=== PATIENT | male | born 1985 | race African-American/Black ===

== ENCOUNTER 2024-07-31 08:46 | Outpatient (AMB) | payer OTHER, SELFPAY ==
--- NOTE | 2024-07-31 09:00 | HO.SPINEOV ---
Intake Visit Reasons: LBP Intake Note: Mr. Aleman is here c/o low back pain. 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 He is a 38-year-old male who presents to the office today for evaluation of right-sided leg pain and right-sided low back pain which started about 2 years ago and is being progressively worse. It radiates down into his lateral thigh into his lateral calf. It is aggravated with standing and walking. Throughout the process of the last few years he has been through physical therapy initially, followed by 1 year of chiropractic, followed by cortisone injections done at your office. Most of these things would give some minor temporary relief but in general the pain always came back. He has been taking Tylenol religiously. He can not take Motrin secondary to GERD symptoms. He is here today with an MRI showing a herniated disc at L1-2 on the right and L4-5 on the right. PMH: Hypertension, high cholesterol, GERD, NAFLD. No history of cardiac, pulmonary, renal, coagulopathy, cancer, blood clots, lumbar surgery, abdominal surgery. Social hx: He does not smoke, drink use any recreational drugs Medications: Atorvastatin, losartan, amlodipine and pantoprazole Allergies: None Physical exam: Awake alert oriented no acute distress, gait is normal, tandem gait walking is normal, strength and reflexes are all normal. Imaging review: Lumbar MRI done at [facility] in June of 2024 shows right L1-2 disc bulge displacing the right L2 nerve root, right L4-5 disc herniation causing compression of the right L5 nerve. Impression: 38-year-old male with a right L5 radiculopathy secondary to right L4-5 disc herniation. The symptoms have been going on for 2 years. He has failed conservative treatment. Dr. Diane and I reviewed the imaging and believe he would be a good candidate for right L4-5 microdiskectomy. The patient would like to think about it and get back to us. We quoted success rate at 90%. Pt was given risk and benefits of surgery including but not limited to infection, hematoma , nerve injury,durotomy, weakness,bowel/bladder injury, persistent pain, recurrent disc hernia as well as the option to continue with conservative treatment and patient wishes to proceed with surgery. Pt is aware they should stop their motrin, aspirin 7 days prior to surgery. All questions were answered to the best of our ability. If there is anything about this patients medical history that we have overlooked or concerns you have about us proceeding with surgery we would appreciate any input you can offer. Thank you for allowing us to care for your patient. The total time spent with this visit with this patient was 45 minutes reviewing history, physical exam, lumbar imaging review, and implementation of treatment plan or further diagnostic testing Lobo Diane MD,PhD [facility] Coding Level of Care Code New Pt Level 4 (59891) Diagnoses Lumbar disc herniation M51.26
--- OUTSIDE RECORDS SUMMARY | 2024-07-31 09:10 | XMS_ITS | Clinical Summary ---
Author Organization 175 [facility] Address [address] [place] [address] Phone Care Team Providers Care Group Home Paraprofessional Name Role Phone Devyn Norris MD Primary Care Provider [phone] Allergies No known active allergies Medications amitriptyline (ELAVIL) 25 mg tablet Take 1 tablet (25 mg total) by mouth at bedtime. 4 Active cholecalciferol (VITAMIN D-3) 50 mcg (2,000 unit) capsule Take 1 capsule (2,000 Units total) by mouth 1 (one) time each day. 4 Active magnesium 250 mg tablet Take 1 Tablet by mouth at bedtime. 4 Active atorvastatin (LIPITOR) 20 mg tablet TAKE 1 TABLET BY MOUTH EVERY DAY 90 tablet 3 4 Active famotidine (PEPCID) 20 mg tabletIndicatio ns:Gastro-esoph ageal reflux disease without esophagitis Take 1 tablet (20 mg total) by mouth 2 (two) times a day. 180 tablet 1 4 Active amLODIPine (NORVASC) 5 mg tablet TAKE 1 TABLET BY MOUTH EVERY DAY 90 tablet 1 4 Active losartan (COZAAR) 100 mg tablet TAKE 1 TABLET BY MOUTH EVERY DAY 90 tablet 1 5 Active pantoprazole (PROTONIX) 40 mg EC tabletIndicatio ns:Gastroesopha geal reflux disease, unspecified whether esophagitis present TAKE 1 TABLET BY MOUTH TWICE A DAY 180 tablet 5 Active pantoprazole (PROTONIX) 40 mg EC tablet Take 1 tablet (40 mg total) by mouth 1 (one) time each day. 4 025 Discontinued Active Problems Problem Noted Date Diagnosed Date Fatty liver 03/10/2024 Overview (03/10/2024): US 01/16/18 Vitamin D deficiency 05/31/2023 Low back pain 12/12/2022 Obesity (BMI 30-39.9) 09/07/2022 HTN (hypertension) 11/08/2021 Hyperlipidemia 07/29/2017 Elevated liver enzymes 07/26/2017 GERD (gastroesophageal reflux disease) Encounters Date Type Department Care Team Description 07/08/2024 8:05 AM EDT - 07/08/2024 11:59 PM EDT Hospital Encounter [facility] MRI [address] [place] [phone] Radiculopathy, lumbar region Discharge Disposition: Home or Self Care 05/08/2024 10:30 AM EST Office Visit Internal Medicine - Colon 175 [facility] [address] [place] [phone] [place], [place] Routine physical examination (Primary Dx); Primary hypertension; Pure hypercholesterolemi a; Obesity (BMI 30-39.9); Gastroesophageal reflux disease, unspecified whether esophagitis present; Vitamin D deficiency; Chronic right-sided low back pain with right-sided sciatica from Last 3 Months Immunizations Name Administration Dates Next Due Hepatitis B Pediatric (Enger ix B; Recombivax HB) to less than 20 yo 07/31/2000,05/10/2000,04/11/2000 MMR, measles mumps and rubel la Live (Priorix; M-M-R II) 12mo and older 12/06/1997,04/11/1989 Meningococcal Polysaccharide 04/15/2006 Tdap Tetanus diptheria acell ular pertussis (Boostrix; Adacel) 7yo and older 04/15/2006 Medical History Medical History Date Comments Hyperlipidemia 07/29/2017 DX:Hyperlipidemi a Fatty liver DX:Fatty liver; COMMENT: US 01/16/18 HTN (hypertension) DX:HTN (hyper tension) Obesity (BMI 30-39.9) DX:Obesity (BMI 30-39.9) Low back pain DX:Low back pain Vitamin D deficiency DX:Vitamin D deficiency GERD (gastroesophageal reflux disease) Family History Relation Name Status Comments Father Alive Mother Alive Social History Tobacco Use Types Packs/Day Years Used Date Smoking Tobacco: Never Smokeless Tobacco: Never Tobacco Cessation:Counseling Given: Not Answered Alcohol Use Standard Drinks/Week Comments Not Currently 0 (1 standard drink = 0.6 oz pur e alcohol) Housing Instability Answer Date Recorde d Are you worried that in the next 2 months you may not have stable housing? No 05/02/2024 Food Access & Nutrition Answer Date Rec orded Do you have access to a vari ety of food including fruits and vegetables? Yes 05/02/2024 Health Literacy Answer Date Recorded How often do you need to hav e someone help you when you read instructions, pamphlets, or other written material from your doctor or pharmacy? Never 05/02/2024 Caregiver: How often do you need to have someone help you when you read instructions, pamphlets, or other written material from your doctor or pharmacy? Not on file 05/02/2024 Financial Risk Answer Date Recorded How hard is it for you to pa y for the very basics like food, housing, medical care, and air conditioning / heating? Unable to respond 05/02/2024 Transportation Answer Date Recorded Has the lack of transportati on kept you from meetings, work, or from getting things needed for daily living? No Has the lack of transportati on kept you from medical appointments or from getting medications? No 05/02/2024 Social Isolation Answer Date Recorded How often do you feel lonely or isolated from th ose around you? Never 05/02/2024 Food Risk Answer Date Recorded Within the past 12 months we worried whether our food would run out before we got money to buy more. Never true 05/02/2024 Within the past 12 months th e food we bought just didn't last and we didn't have money to get more. Never true 05/02/2024 Dependent Care Answer Date Recorded Do you need help finding or paying for care for your loved ones. For example, child specialist or elderly care for an older adult? Unable to respond 05/02/2024 Education Answer Date Recorded Do you think completing more education or training, like finishing a GED, going to college, or learning a trade, would be helpful for you? N/A 05/02/2024 Employment and Income Answer Date Recor ded During the last four weeks, have you been actively looking for work? Unable to respond 05/02/2024 Living Situation Answer Date Recorded What is your living situation? 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[employer] Not on file Not on file Not on file Obstetrics History Last Filed Vital Signs Vital Sign Reading Time Taken Comments Blood Pressure 138/90 05/08/2024 10:10 AM EST Pulse 98 05/08/2024 10:10 AM EST Temperature 36.7 ??C (98 ??F) 05/08/2024 10:10 AM EST Respiratory Rate - - Oxygen Saturation 97% 05/08/2024 10:10 AM EST Inhaled Oxygen Concentration - - Weight 107 kg (235 lb) 05/08/2024 10:10 AM EST Height 175.3 cm (5' 9 ) 05/08/2024 10:10 AM EST Body Mass Index 34.7 05/08/2024 10:10 AM EST Plan of Treatment Upcoming Encounters Date Type Department Care Team ([facility] st Contact Info) Description 11/05/2024 8:30 AM EDT Office Visit Internal Medicine - Colon [address] [phone] Devyn Norris MD 175 [facility] [address] [place] [address] Health Maintenance Due Date Last Done Comments Pneumococcal Vaccine: Pediatrics (0 to 5 Years) and At-Risk Patients (6 to 64 Years) (1 of 2 - PCV) 12/03/2006 DTaP,Tdap,and Td Vaccines (7 - Td or Tdap) 04/15/2016 04/15/2006, 11/16/1992, 07/19/1989, Additional history exists COVID-19 Vaccine (2 - Tito risk series) 09/22/2020 08/25/2020 HIV Screening 03/24/2022 Hepatitis C Screening 03/24/2022 Influenza Vaccine (Season Ended) 2024 Depression Screening 05/02/2025 05/02/2024, 01/20/20 Social Influencers of Health Screening 05/02/2025 05/02/2024 Hypertension/CHF/CAD Annual BMP Blood Test 05/08/2025 05/08/2024, 05/30/2023 Cholesterol Screening (Lipid Panel) 05/08/2029 05/08/2024, 05/30/2023 HIB Vaccines Completed 07/19/1989 IPV Vaccines Completed 11/16/1992, 04/0 09/1989, 08/22/1988, Additional history exists MMR Vaccines Completed 12/06/1997, 04/11/1989 Hepatitis B Vaccines Completed 07/31/2000, 05/10/2000, 04/11/2000 Meningococcal ACWY Vaccine Aged Out 12/11/2006, No longer eligible based on patient's age to complete this topic HPV Vaccines Aged Out No longer eligi ble based on patient's age to complete this topic Hepatitis A Vaccines Aged Out No long er eligible based on patient's age to complete this topic Meningococcal B Vaccine Aged Out No l onger eligible based on patient's age to complete this topic RSV Immunization Patients Under 20 months Aged Out No longer eligible based on patient's age to complete this topic Varicella Vaccines Aged Out No longer eligible based on patient's age to complete this topic Procedures Procedure Name Priority Date/Time Associated Diagnosis Comments MR LUMBAR SPINE WO CONTRAST Routine 07/08/2024 9:47 AM EDT Radiculopathy, lumbar region CBC WITH AUTO DIFFERENTIAL Routine 05/08/2024 10:40 AM EST Routine physical examination VITAMIN B12 Routine 05/08/2024 10:40 AM EST Routine physical examination VITAMIN D 25 HYDROXY Routine 05/08/2024 10:40 AM EST Vitamin D deficiency THYROID STIMULATING HORMONE Routine 05/08/2024 10:40 AM EST Routine physical examination MICROALBUMIN CREATININE URINE RATIO Routine 05/08/2024 10:40 AM EST Primary hypertension MAGNESIUM Routine 05/08/2024 10:40 AM EST Routine physical examination IRON Routine 05/08/2024 10:40 AM EST Routine physical examination FERRITIN Routine 05/08/2024 10:40 AM EST Routine physical examination LIPID PANEL WITH REFLEX TO DIRECT LDL Routine 05/08/2024 10:40 AM EST Routine physical examination HEMOGLOBIN A1C Routine 05/08/2024 10:40 AM EST Routine physical examination COMPREHENSIVE METABOLIC PANEL Routine 05/08/2024 10:40 AM EST Primary hypertension CBC AND DIFFERENTIAL Routine 05/08/2024 10:40 AM EST Routine physical examination HM DEPRESSION SCREENING Routine 01/20/2024 from Last 3 Months or Most Recently Relevant to Health Maintenance Results * MR Lumbar Spine wo Contrast (07/08/2024 9:47 AM EDT) Anatomical Region Laterality Modality L-spine, Spine Magnetic Resonan ce 07/11/2024 8:36 PM EDT Impressions 07/13/2024 10:06 AM EDT 1. ??A right-sided disc herniation at L4-5 results in impingement of the right L5 nerve root in the lateral recess. 2. ??A right central protrusion and annular fissure at L1-2 causes posterior displacement of the right L2 nerve root in the lateral recess. -------- FINAL REPORT -------- Dictated By: Lew York Dictated Date: 07/11/2024 20:36 ET Assigned Physician: Lew York Reviewed and Electronically Signed By: Lew York Signed Date: 07/13/2024 10:06 ET Workstation ID: [id number] Transcribed By: Self Edit Transcribed Date: 07/13/2024 09:45 ET Narrative 07/13/2024 10:06 AM EDT PROCEDURE: MRI of the lumbar spine without contrast. TECHNIQUE: Multiplanar multisequence MRI of the lumbar spine without intravenous contrast administration. HISTORY: radiculopathy COMPARISON: 04/02/2022. FINDINGS: The paraspinous soft tissues are normal. Alignment is normal. ??No concerning marrow infiltrative lesion or compression deformity. Normal position of the conus at T12-L1. Lumbar disc levels: L1-2: Mild disc space height loss and moderate endplate irregularity. ??There is a moderate right central focal protrusion and annular fissure with mild posterior displacement of the right L2 nerve root in the lateral recess. ??No impingement. ??No spinal or foraminal stenosis. L2-3: No significant disc or facet abnormality. ??No spinal or foraminal stenosis. L3-4: No significant disc or facet abnormality. ??No spinal or foraminal stenosis. L4-5: Broad-based right central and foraminal disc herniation, extruded slightly superiorly. ??There is associated impingement of the right L5 nerve root in the lateral recess. ??No spinal or foraminal stenosis. L5-S1: No significant disc or facet abnormality. ??No spinal or foraminal stenosis. Procedure Note Lew York MD - 07/13/2024 PROCEDURE: MRI of the lumbar spine without contrast. TECHNIQUE: Multiplanar multisequence MRI of the lumbar spine withoutintravenous contrast administration. HISTORY: radiculopathy COMPARISON: 04/02/2022. FINDINGS: The paraspinous soft tissues are normal. Alignment is normal. No concerning marrow infiltrative lesion orcompression deformity. Normal position of the conus at T12-L1. Lumbar disc levels: L1-2: Mild disc space height loss and moderate endplate irregularity.There is a moderate right central focal protrusion and annular fissurewith mild posterior displacement of the right L2 nerve root in the lateralrecess. No impingement. No spinal or foraminal stenosis. L2-3: No significant disc or facet abnormality. No spinal or foraminalstenosis. L3-4: No significant disc or facet abnormality. No spinal or foraminalstenosis. L4-5: Broad-based right central and foraminal disc herniation, extrudedslightly superiorly. There is associated impingement of the right P2xnslr root in the lateral recess. No spinal or foraminal stenosis. L5-S1: No significant disc or facet abnormality. No spinal or foraminalstenosis. IMPRESSION: 1. A right-sided disc herniation at L4-5 results in impingement of theright L5 nerve root in the lateral recess. 2. A right central protrusion and annular fissure at L1-2 causesposterior displacement of the right L2 nerve root in the lateral recess. -------- FINAL REPORT -------- Dictated By: Lew York Dictated Date: 07/11/2024 20:36 ET Assigned Physician: Lwe York Reviewed and Electronically Signed By: Lew York Signed Date: 07/13/2024 10:06 ET Workstation ID: [id number] Transcribed By: Self Edit Transcribed Date: 07/13/2024 09:45 ET Will Sierra DO IMG MRI PROCEDURES Final Result * (ABNORMAL) Lipid panel with reflex to direct LDL (05/08/2024 10:40 AM EST) Cholesterol 198 0 - 200 mg/dL LAB CHEMISTRY METHOD 05/08/2024 4:58 PM [facility] Triglycerides 109 0 - 150 mg/dL LAB CHEMISTRY METHOD 05/08/2024 4:58 PM [facility] HDL 55 >=40 mg/dL LAB CHEMISTRY METHOD 05/08/2024 4:58 PM [facility] LDL Calculated 121(H) 0 - 100 mg/dL LAB CHEMISTRY METHOD 05/08/2024 4:58 PM [facility] VLDL Cholesterol Gumaro 21.8 mg/dL LAB CHEMISTRY METHOD 05/08/2024 4:58 PM [facility] Non HDL Chol. (LDL+VLDL) 143 <145 mg/dL LAB CHEMISTRY METHOD 05/08/2024 4:58 PM [facility] Chol/HDL Ratio 3.6 0.0 - 4.4 LAB CHEMISTRY METHOD 05/08/2024 4:58 PM [facility] Blood Venous blood specimen / Unknown Venipuncture / Unknown 05/08/2024 10:40 AM EST 05/08/2024 10:40 AM EST [facility] LAB BLOOD ORDERABLES Fin al Result [facility] [address] [place] [address], [place] [phone] * (ABNORMAL) CBC auto differential (05/08/2024 10:40 AM EST) WBC 5.6 4.8 - 10.8 K/mcL LAB HEMETOLOGY METHOD 05/08/2024 2:22 PM [facility] RBC 5.90(H) 4.50 - 5.50 M/mcL LAB HEMETOLOGY METHOD 05/08/2024 2:22 PM [facility] Hemoglobin 15.9 13.5 - 17.5 g/dL LAB HEMETOLOGY METHOD 05/08/2024 2:22 PM [facility] Hematocrit 47.8 42.0 - 54.0 % LAB HEMETOLOGY METHOD 05/08/2024 2:22 PM [facility] MCV 80.6 79.0 - 98.0 FL LAB HEMETOLOGY METHOD 05/08/2024 2:22 PM [facility] MCH 26.8(L) 27.0 - 32.0 pcg LAB HEMETOLOGY METHOD 05/08/2024 2:22 PM [facility] MCHC 33.3 32.0 - 37.0 g/dL LAB HEMETOLOGY METHOD 05/08/2024 2:22 PM [facility] RDW 12.2 11.0 - 15.0 % LAB HEMETOLOGY METHOD 05/08/2024 2:22 PM [facility] Platelets 289 130 - 400 K/mcL LAB HEMETOLOGY METHOD 05/08/2024 2:22 PM [facility] MPV 10.3 7.0 - 11.0 FL LAB HEMETOLOGY METHOD 05/08/2024 2:22 PM [facility] NRBC 0.0 <1.0 % LAB HEMETOLOGY METHOD 05/08/2024 2:22 PM [facility] NRBC Absolute 0.00 <0.10 K/mcL LAB HEMETOLOGY METHOD 05/08/2024 2:22 PM [facility] Neutrophils Relative 59.1 % LAB HEMETOLOGY METHOD 05/08/2024 2:22 PM [facility] Lymphocytes Relative 33.0 % LAB HEMETOLOGY METHOD 05/08/2024 2:22 PM [facility] Monocytes Relative 6.7 % LAB HEMETOLOGY METHOD 05/08/2024 2:22 PM [facility] Eosinophils Relative 0.4 % LAB HEMETOLOGY METHOD 05/08/2024 2:22 PM [facility] Basophils Relative 0.4 % LAB HEMETOLOGY METHOD 05/08/2024 2:22 PM [facility] Immature Granulocytes Relative 0.4 % LAB HEMETOLOGY METHOD 05/08/2024 2:22 PM [facility] Neutrophils Absolute 3.34 1.50 - 7.00 K/mcL LAB HEMETOLOGY METHOD 05/08/2024 2:22 PM [facility] Lymphocytes Absolute 1.86 1.00 - 5.00 K/mcL LAB HEMETOLOGY METHOD 05/08/2024 2:22 PM [facility] Monocytes Absolute 0.38 0.20 - 1.00 K/mcL LAB HEMETOLOGY METHOD 05/08/2024 2:22 PM [facility] Eosinophils Absolute 0.02 0.00 - 0.50 K/mcL LAB HEMETOLOGY METHOD 05/08/2024 2:22 PM EST [facility] Basophils Absolute 0.02 0.00 - 0.20 K/[facility] LAB HEMETOLOGY METHOD 05/08/2024 2:22 PM EST [facility] Immature Granulocytes Absolute 0.02 0.00 - 0.03 K/[facility] LAB HEMETOLOGY METHOD 05/08/2024 2:22 PM EST [facility] Blood Venous blood specimen / Unknown Venipuncture / Unknown 05/08/2024 10:40 AM EST 05/08/2024 10:40 AM EST us [facility] LAB BLOOD ORDERABLES Fin al Result Performing Organization Address [facility]/ZIP Co de Phone Number [facility] [address] [place] [address], * Microalbumin creatinine urine ratio (05/08/2024 10:40 AM EST) Creatinine, Urine 145.0 mg/dL LAB CHEMISTRY METHOD 05/08/2024 4:51 PM [facility] Microalb, Ur 8.2 0.0 - 29.0 mg/L LAB CHEMISTRY METHOD 05/08/2024 4:51 PM [facility] Microalb/Creat Ratio 6 <30 mg/g creat LAB CHEMISTRY METHOD 05/08/2024 4:51 PM [facility] Urine Urine specimen obtained by clean catch procedure / Unknown Non-blood Collection / Unknown 05/08/2024 10:40 AM EST 05/08/2024 10:40 AM EST [facility] LAB URINE ORDERABLES Fin al Result Performing Organization Address City/[facility]/ZIP Co de Phone Number [facility] [address] [place] [address], * (ABNORMAL) Vitamin D 25 hydroxy (05/08/2024 10:40 AM EST) Pathologist [facility] Vit D, 25-Hydroxy 23.6(L) 30.0 - 80.0 ng/mL LAB CHEMISTRY METHOD 05/08/2024 4:27 PM EST [facility] Blood Venous blood specimen / Unknown Venipuncture / Unknown 05/08/2024 10:40 AM EST 05/08/2024 10:40 AM EST us [facility] LAB BLOOD ORDERABLES Fin al Result [facility] [address] [place] [address], * Thyroid stimulating hormone (05/08/2024 10:40 AM EST) [facility] TSH 2.55 0.40 - 4.00 mcIU/mL LAB CHEMISTRY METHOD 05/08/2024 4:27 PM EST [facility] Blood Venous blood specimen / Unknown Venipuncture / Unknown 05/08/2024 10:40 AM EST 05/08/2024 10:40 AM EST us [facility] LAB BLOOD ORDERABLES Fin al Result [facility] [address] [place] [address], [place] [phone] * Magnesium (05/08/2024 10:40 AM EST) Pathologist [facility] Magnesium 2.2 1.9 - 2.6 mg/dL LAB CHEMISTRY METHOD 05/08/2024 4:34 PM EST [facility] Blood Venous blood specimen / Unknown Venipuncture / Unknown 05/08/2024 10:40 AM EST 05/08/2024 10:40 AM EST us [facility] LAB BLOOD ORDERABLES Fin al Result Performing Organization Address City/[facility]/ZIP Co de Phone Number [facility] [address] [place] [address], [place] [phone] * Iron (05/08/2024 10:40 AM EST) [facility] Iron 123 50 - 160 mcg/dL LAB CHEMISTRY METHOD 05/08/2024 4:58 PM EST [facility] Blood Venous blood specimen / Unknown Venipuncture / Unknown 05/08/2024 10:40 AM EST 05/08/2024 10:40 AM EST us [facility] LAB BLOOD ORDERABLES Fin al Result Performing Organization Address [facility]/ZIP Co de Phone Number [facility] [address] [place] [address], [place] [phone] * Hemoglobin A1c (05/08/2024 10:40 AM EST) [facility] Hemoglobin A1C 4.8 <6.5 % LAB CHEMISTRY METHOD 05/08/2024 9:46 PM EST [facility] Mean Bld Glu Estim. 91 mg/dL LAB CHEMISTRY METHOD 05/08/2024 9:46 PM EST [facility] Blood Venous blood specimen / Unknown Venipuncture / Unknown 05/08/2024 10:40 AM EST 05/08/2024 10:40 AM EST us [facility] LAB BLOOD ORDERABLES Fin al Result Performing Organization Address City/[facility]/ZIP Co de Phone Number [facility] [address] [place] [address], [place] [phone] * Ferritin (05/08/2024 10:40 AM EST) [facility] Ferritin 284 26 - 388 ng/mL LAB CHEMISTRY METHOD 05/08/2024 4:58 PM EST [facility] Blood Venous blood specimen / Unknown Venipuncture / Unknown 05/08/2024 10:40 AM EST 05/08/2024 10:40 AM EST [facility] LAB BLOOD ORDERABLES Fin al Result [facility] [address] [place] [address], [place] [phone] * Vitamin B12 (05/08/2024 10:40 AM EST) [facility] Vitamin B-12 586 250 - 900 pcg/mL LAB CHEMISTRY METHOD 05/08/2024 4:58 PM EST [facility] Blood Venous blood specimen / Unknown Venipuncture / Unknown 05/08/2024 10:40 AM EST 05/08/2024 10:40 AM EST [facility] LAB BLOOD ORDERABLES Fin al Result Performing Organization Address [facility]/ZIP Co de Phone Number [facility] [address] [place] [address], [place] [phone] * (ABNORMAL) Comprehensive metabolic panel (05/08/2024 10:40 AM EST) [facility] Sodium 132(L) 133 - 145 mmol/L LAB CHEMISTRY METHOD 05/08/2024 4:58 PM EST [facility] Potassium 4.3 3.5 - 5.5 mmol/L LAB CHEMISTRY METHOD 05/08/2024 4:58 PM EST [facility] Chloride 102 96 - 110 mmol/L LAB CHEMISTRY METHOD 05/08/2024 4:58 PM EST [facility] CO2 28 21 - 32 mmol/L LAB CHEMISTRY METHOD 05/08/2024 4:58 PM [facility] Anion Gap 2(L) 3 - 11 LAB CHEMISTRY METHOD 05/08/2024 4:58 PM [facility] Glucose 94 70 - 100 mg/dL LAB CHEMISTRY METHOD 05/08/2024 4:58 PM [facility] BUN 13 5 - 25 mg/dL LAB CHEMISTRY METHOD 05/08/2024 4:58 PM [facility] Creatinine 0.85 0.70 - 1.30 mg/dL LAB CHEMISTRY METHOD 05/08/2024 4:58 PM [facility] eGFR 115 >=60 mL/min/1. 73m2 LAB CHEMISTRY METHOD 05/08/2024 4:58 PM [facility] Comment:Calculation based on the??Chronic Kidney Disease Epidemiology Collaboration (CKD-EPI) equation refit??without adjustment for race. BUN/Creatinine Ratio 15.3 LAB CHEMISTRY METHOD 05/08/2024 4:58 PM [facility] Calcium 9.1 8.5 - 10.5 mg/dL LAB CHEMISTRY METHOD 05/08/2024 4:58 PM [facility] AST (SGOT) 31 10 - 42 unit/L LAB CHEMISTRY METHOD 05/08/2024 4:58 PM [facility] ALT (SGPT) 68(H) 10 - 60 unit/L LAB CHEMISTRY METHOD 05/08/2024 4:58 PM [facility] Alkaline Phosphatase 102 42 - 121 unit/L LAB CHEMISTRY METHOD 05/08/2024 4:58 PM [facility] Total Protein 8.2(H) 6.0 - 8.0 g/dL LAB CHEMISTRY METHOD 05/08/2024 4:58 PM [facility] Albumin 4.1 3.2 - 5.0 g/dL LAB CHEMISTRY METHOD 05/08/2024 4:58 PM [facility] Total Bilirubin 0.8 0.0 - 1.4 mg/dL LAB CHEMISTRY METHOD 05/08/2024 4:58 PM EST [facility] Blood Venous blood specimen / Unknown Venipuncture / Unknown 05/08/2024 10:40 AM EST 05/08/2024 10:40 AM EST [facility] LAB BLOOD ORDERABLES Fin al Result [facility] [address] [place] [address], [place] [phone] * Depression Screening (01/20/2024) Depression Screening abstracted Historical Provider HEALTH MAINTENANCE Final Result from Last 3 Months or Most Recently Relevant to Health Maintenance Insurance [facility] [address] [place] [address] Care Teams Group Home Paraprofessional Relationship Specialty Start Date End Date Devyn Norris MD [address] [facility] [address] [place] [address] PCP - General Internal Medicine 03/17/18
== END 2024-07-31 09:19 | disposition home or self-care (01) ==
LOC: HO.HNS 08:46
PROVIDERS: PCP Internal Medicine; Referring Provider Physical Medicine & Rehabilitation; Visit Provider Physician Assistant
DX: M51.26 Other intervertebral disc displacement, lumbar region (principal)
CPT/HCPCS: 99204

== ENCOUNTER 2024-10-15 07:50 | Day surgery (SDC) | payer OTHER, SELFPAY ==
[2024-09-24 09:53] VITALS: BP 134/76; PULSE 101; RESP 16; O2SAT 98; BMI 34.7
--- NOTE | 2024-09-24 10:14 | HO.ANESPROP2 ---
Documented by User: Lashon Reyes NP 10/13/24 12:05 HPI - Anesthesia Eval Consult details Narrative: 38yo M for Right L4-5 MicroLumbar discectomy, 10/15/24 No recent illness No CP/SOB with treadmill/stationary bike 2-3 x weekly GERD: ppi with prn H2 mostly controls Slight low Na 04/2024. Repeat at [facility] Active Problems Active Problems: All Active Problems Lumbar disc herniation (Acute) Past Medical History Medical History (Updated 09/24/24 @ 10:09 by Fartun Ravi, RN) Renal stone (~2022) Anxiety Vitamin D deficiency NAFLD (nonalcoholic fatty liver disease) Elevated LFTs Right leg pain Low back pain Insomnia Hiatal hernia GERD (gastroesophageal reflux disease) HLD (hyperlipidemia) HTN (hypertension) Family History Family history of problems with anesthesia: No Surgical History Surgical History History of esophagogastroduodenoscopy (EGD) History of Problems with Anesthesia: No Social History Social History (Updated 09/24/24 @ 10:21 by Fartun Ravi RN) Household Members: Spouse Housing: House Are you a primary clinical care leader to a significant other at home: No Do you presently have visiting nurse or other home services: No Patient Tobacco Use Status: Never used Tobacco Use of substances other than those prescribed or required for medical reasons: No Have you been hit, kicked, punched, or otherwise hurt by someone within the past year? If so, by whom?: No Are you DNR?: No Advance Directives: No Advance Directives Information Provided: Yes Advance Directives on File: No Poor oral hygiene: No (some missing teeth, cracked crown) Meds Allergies Allergy/AdvReac Type Severity Reaction Status Date / Time No Known Allergies Allergy Verified 10/15/24 09:27 Home Medications ?Medication ?Instructions ?Recorded ?Confirmed ?Last Taken ?Type amitriptyline 25 mg tablet 25 mg PO BEDTIME 09/23/24 10/15/24 Unknown History amlodipine 5 mg tablet 5 mg PO DAILY 09/23/24 10/15/24 10/15/24 History atorvastatin 20 mg tablet 20 mg PO DAILY 09/23/24 10/15/24 10/15/24 History cholecalciferol (vitamin D3) 50 50 mcg PO DAILY 09/23/24 10/15/24 07/14/24 History mcg (2,000 unit) capsule (Vitamin D3) famotidine 20 mg tablet 20 mg PO BID PRN Acid Reflux 09/23/24 10/15/24 Unknown History losartan 100 mg tablet 100 mg PO DAILY 09/23/24 10/15/24 10/14/24 History pantoprazole 40 mg tablet,delayed 40 mg PO BID 09/23/24 10/15/24 10/15/24 History release acetaminophen 500 mg tablet 1,000 mg PO Q6H PRN Pain 09/24/24 10/15/24 Unknown History Exam Height,Weight and Vital Signs: Height 5 ft 9 in Weight 106.594 kg Last Vital Signs Pulse 101 H 09/24/24 09:53 Resp 16 09/24/24 09:53 BP 134/76 09/24/24 09:53 Pulse Ox 98 09/24/24 09:53 O2 Del Method Room Air 09/24/24 09:53 Pertinent Lab Results Pertinent Lab Results: Lab Results 09/24/24 Range/Units 10:45 Sodium 137 (135-145) mmol/L Potassium 4.2 (3.3-5.1) mmol/L Chloride 105 (96-108) mmol/L Carbon Dioxide 27 (22-29) mmol/L Anion Gap 9 L (12-20) BUN 17 H (9-16) mg/dL Creatinine 0.73 (0.5-1.4) mg/dL Estim Creat Clear Calc 168.3 Estimated GFR > 60 Random Glucose 90 (60-115) mg/dL Calcium 9.4 (8.4-10.2) mg/dL Narrative Narrative: ECHO 2023 LV wall motion appears nml, EF 60% No significant valvular abn Airway TM Dist: >3cm Neck ROM: Full Loose/Missing/Broken Teeth: Yes (broken crown left lower, missing molars) Heart: tachy, RR Lungs: CTAB Assessment and Plan Assessment Anesthesia Assessment: Anesthesia Plan Discussed and PAT Visit Final Anesthetic Review Family History of Problems with Anesthesia: No History of Problems with Anesthesia: No Documented by User: Aleksandar Neves MD 10/15/24 10:53 [facility] Past Medical History Medical History (Updated 09/24/24 @ 10:09 by Fartun Ravi, RN) Renal stone (~2022) Anxiety Vitamin D deficiency NAFLD (nonalcoholic fatty liver disease) Elevated LFTs Right leg pain Low back pain Insomnia Hiatal hernia GERD (gastroesophageal reflux disease) HLD (hyperlipidemia) HTN (hypertension) Cognitive capacity: normal Functional capacity: independent ambulation Surgical History Surgical History History of esophagogastroduodenoscopy (EGD) Social History Social History (Updated 09/24/24 @ 10:21 by Fartun Ravi, RN) Household Members: Spouse Housing: House Are you a primary clinical care leader to a significant other at home: No Do you presently have visiting nurse or other home services: No Patient Tobacco Use Status: Never used Tobacco Use of substances other than those prescribed or required for medical reasons: No Have you been hit, kicked, punched, or otherwise hurt by someone within the past year? If so, by whom?: No Are you DNR?: No Advance Directives: No Advance Directives Information Provided: Yes Advance Directives on File: No Poor oral hygiene: No (some missing teeth, cracked crown) Meds Allergies Allergy/AdvReac Type Severity Reaction Status Date / Time No Known Allergies Allergy Verified 10/15/24 09:27 Home Medications ?Medication ?Instructions ?Recorded ?Confirmed ?Last Taken ?Type amitriptyline 25 mg tablet 25 mg PO BEDTIME 09/23/24 10/15/24 Unknown History amlodipine 5 mg tablet 5 mg PO DAILY 09/23/24 10/15/24 10/15/24 History atorvastatin 20 mg tablet 20 mg PO DAILY 09/23/24 10/15/24 10/15/24 History cholecalciferol (vitamin D3) 50 50 mcg PO DAILY 09/23/24 10/15/24 07/14/24 History mcg (2,000 unit) capsule (Vitamin D3) famotidine 20 mg tablet 20 mg PO BID PRN Acid Reflux 09/23/24 10/15/24 Unknown History losartan 100 mg tablet 100 mg PO DAILY 09/23/24 10/15/24 10/14/24 History pantoprazole 40 mg tablet,delayed 40 mg PO BID 09/23/24 10/15/24 10/15/24 History release acetaminophen 500 mg tablet 1,000 mg PO Q6H PRN Pain 09/24/24 10/15/24 Unknown History Exam Exam Date and Time: 10/15/2024 Airway Other: normal healthy man. with medical problems well optimized Assessment and Plan Final Anesthetic Review NPO: Yes ASA Class: II Final Preanesthetic Review: No Changes in Pt Med Stat, Meds/Allgs Chart Reviewed, Consent Obtained/Reviewed and Anes Risks/Benef Reviewed Patient Risk: Low Procedure Risk: Low Anesthetic Plan Anesthetic Plan: GA Disposition: Standard PACU
[2024-09-24 12:00] LABS: Anion Gap 9 (12-20); Blood Urea Nitrogen 17 mg/dL (9-16); Calcium 9.4 mg/dL (8.4-10.2); Carbon Dioxide 27 mmol/L (22-29); Chloride 105 mmol/L (96-108); Creatinine Clr Calc Pharmacy 168.3; Estimated Glomerular Filt Rate > 60; Potassium 4.2 mmol/L (3.3-5.1); Sodium 137 mmol/L (135-145)
[2024-10-15] VITALS (9 sets, daily range): BP systolic 127–157; BP diastolic 72–100; PULSE 87–115; RESP 16–20; TEMP 36.2–36.6; O2SAT 93–100; BMI 35.6
--- NOTE | ~2024-10-15 | FL_ITS ---
EXAMINATION: FL GUIDANCE ONLY HISTORY: l4-5 microlumbar discectomy COMPARISON: None available. TECHNIQUE: Fluoroscopy time: Less than 1 minute. Cumulative Dose: 3.67 mGy. DAP: 1.00 mGym2 Images: 1. FINDINGS: A single fluoroscopic spot film of the lumbar spine in the lateral projection demonstrates a probe in the L4-5 intervertebral disc space from a posterior approach. FL/FL guidance in OR IMPRESSION: Fluoroscopy during procedure. Please see procedure report for additional information. Electronically signed by: Damon Mcpherson MD 10/15/2024 01:55 PM EDT
[2024-10-15] MEDS: Lactated Ringers 1,000 ML 100 ML IVCONT (09:54)
--- NOTE | 2024-10-15 10:26 | MHC.SHP ---
Pre-Procedural Eval Section A - 24 Hr Update-Section A only Date of Service: 10/15/24 The patient is an INPATIENT: No Section B - Complete if H&P > 30 days Chief Complaint: Other intervertebral disc displacement, lumbar reg Details of Present Illness: Back pain, right leg pain Allergies: Allergies Allergy/AdvReac Type Severity Reaction Status Date / Time No Known Allergies Allergy Verified 10/15/24 09:27 Review of Systems Sugical H&P ROS: Negative: Constitution, Cardiovascular, Respiratory, Neurological, Psychiatric, Hem-Onc, Allergic/Immunologic, Gastrointestinal, Genitourinary, Musculoskeletal, Integumentary, Endocrine and Eyes/Ears/Nose/Throat Exam Surgical H&P Exam: Normal: HEENT, Normal: Heart, Normal: Lungs, Normal: Extremities, Normal: Abdomen, Normal: Skin and Normal: Neurological (Awake, alert) Plan Diagnosis/Plan: Unchanged I have reviewed the history and physical and performed a pertinent physical examination on my patient. No changes have occurred unless specified. Right L4-5 microdiskectomy Time Spent With Patient Time: Total time managing care of this patient today __5__ minutes.
--- NOTE | 2024-10-15 11:38 | W.PM.OPN ---
Operative Note Operative Note Date of Service: 10/15/24 Narrative: Preoperative diagnosis: Right L5 radiculopathy due to disc herniation Postoperative diagnosis: Same Procedure: Right L4-5 lumbar microdiskectomy with microscope Surgeon: Smith Diane MD, PhD Bag Filler Machine Operator: dominic Ayers This 38-year-old male suffering from a right lumbar radiculopathy due to disc herniation L4-5 compressing the right L5 nerve root. The patient was offered a lumbar microdiskectomy to decompress the nerve root. The procedure complications were explained. The patient was consented. The patient was brought to the operating room and endotracheally intubated. The patient was turned in a prone position on the Marcelo frame. Prepping and draping was done followed by time-out. A mid lumbar incision was made followed by release of the paravertebral muscles on the right side to expose the L4-5 interspace. An intraoperative x-rays obtained to confirm the correct level. The microscope was brought in. A L4 laminotomy was done followed by opening of the flavum ligament. The L5 nerve root was identified and retracted medially to expose the L4-5 disc space. I could palpate a disc bulge inferior and lateral from the L5 nerve root. I performed an annulotomy after which I resected the disc bulge. The disc space was inspected and any residual disc fragments were removed. This resulted in decompression of the [id number] root. Hemostasis was done. The microscope was removed. Marcaine was injected intramuscularly.The incision was closed in two layers. Steri-Strips used to approximate the incision. An op-site were taken there was used to cover the incision. All sponge and needle counts were correct. Patient was extubated and transported in stable condition to recovery room. this procedure was done with the aid of a physician investment sales assistant who performed the initial exposure until the microscope was brought in and performed the closure of the incision. Anesthesia: General Blood loss: 35 ml Complications: None Specimen: None Surgical time: 65 min Disposition: Discharge home
--- NOTE | 2024-10-15 11:41 | PM.DS ---
DS: Providers Provider Date of Service: 10/15/24 <LENNIE Benz - Last Filed: 10/15/24 11:43> Date of discharge: 10/15/24 <LENNIE Benz - Last Filed: 10/15/24 11:43> Primary care physician: Unknown Physician <LENNIE Benz - Last Filed: 10/15/24 11:43> Admitting clinician: Smith Diane <LENNIE Benz - Last Filed: 10/15/24 11:43> DS: Diagnosis Discharge Diagnosis (1) Lumbar disc herniation: Status: Acute <LENNIE Benz - Last Filed: 10/15/24 11:43> DS: Summary Time Attestation Discharge Coordination Time (in mins): 12 <LENNIE Tan - Last Filed: 10/15/24 13:14> Quality: Safe Use of Opioids Does Pt have an Active Cancer Diagnosis on the Problem List?: No <LENNIE Tan - Last Filed: 10/15/24 13:14> Quality: Stroke Does the patient have a stroke diagnosis?: No <LENNIE Tan - Last Filed: 10/15/24 13:14> Physical Exam Vital Signs: Vital Signs: Last Vital Signs Temp 97.9 F 10/15/24 09:29 Pulse 87 10/15/24 09:29 Resp 16 10/15/24 09:29 BP 138/80 10/15/24 09:29 Pulse Ox 100 10/15/24 09:29 O2 Del Method Room Air 10/15/24 09:29 BMI result Body Mass Index 35.6 <LENNIE Benz - Last Filed: 10/15/24 11:43> Discharge Plan Discharge Patient Disposition: Home, Self-Care <LENNIE Benz - Last Filed: 10/15/24 11:43> Referrals: Physician,Unknown J [Primary Care Provider, Medical] - 1 Week <LENNIE Benz - Last Filed: 10/15/24 11:43> Discharge Medications: New docusate sodium [Colace] 100 mg capsule 100 mg PO BID Qty: 20 0RF oxycodone 5 mg tablet 5 mg PO Q4H PRN (Reason: pain) Qty: 20 0RF Rx Instructions: Partial Fill upon patient request. Continued atorvastatin 20 mg tablet 20 mg PO DAILY amlodipine 5 mg tablet 5 mg PO DAILY famotidine 20 mg tablet 20 mg PO BID PRN (Reason: Acid Reflux) amitriptyline 25 mg tablet 25 mg PO BEDTIME pantoprazole 40 mg tablet,delayed release (DR/EC) 40 mg PO BID losartan 100 mg tablet 100 mg PO DAILY cholecalciferol (vitamin D3) [Vitamin D3] 50 mcg (2,000 unit) capsule 50 mcg PO DAILY acetaminophen 500 mg Tablet 1,000 mg PO Q6H PRN (Reason: Pain) <LENNIE Benz - Last Filed: 10/15/24 11:43> Discharge Orders: Discharge Order (Routine); Ordered 10/15/24 Ordered By: Bradley Francis <LENNIE Benz - Last Filed: 10/15/24 11:43> Diet: Advance to usual diet <LENNIE Benz - Last Filed: 10/15/24 11:43> Advance to usual diet <LENNIE Tan - Last Filed: 10/15/24 13:14> Activity on Discharge: As tolerated <LENNIE Benz - Last Filed: 10/15/24 11:43> As tolerated <LENNIE Tan - Last Filed: 10/15/24 13:14> Activity Restrictions/Additional Instructions: After your spinal surgery we ask you to observe the following restrictions/guidelines: Activity: It is normal to feel some discomfort as you increase your activity, but that will improve with time. We ask you avoid heavy lifting or acitivities that cause pain. As a general rule, 8lbs is a safe limit for lifting right after surgery. Walk as much as you feel comfortable but not to exhaustion. You will feel extra tired the first few days after surgery. Stay well hydrated. It is OK to walk up and down stairs You may return to driving when you are off narcotics (such as vicodin, oxycodone, dilaudid, etc), and you are back to normal functional capacity. If you have any concerns please check with office before driving. Return to work is specific to each patient and each surgery, so please speak with your doctor/PA at first follow up. Please bring paperwork such as FMLA at that time if you need it filled out. Medications: For optimum pain control, it is best to start with a combination of 500 mg of Tylenol every 4 hours with 600 mg of Motrin every 8 hours, and use narcotics as needed in between for breakthrough pain. We will give you a short supply of narcotics after surgery (usually one weeks worth). If you need more please call the office but do not use more than prescribed. You will need to give our office 48 hours notice if you need narcotics refilled and we do not fill narcotics on weekends or evenings. If you are on a narcotic, it is a good idea to take a stool softener such as colace or senna to avoid constipation If you take blood thinner such as aspirin, Plavix, Coumadin, Effient, Eliquis etc for conditions such as Afib, DVT, Pulmonary embolus, coronary disease, stents etc please speak with your surgeon about specific details as to when you can resume these medications. You can resume NSAIDs on post op day 1 (eg: Motrin, Naproxen, etc). Follow up: Please call the office, , after surgery to arrange a 3 week follow up for wound check. Wound Care: You may remove your dressing on the first day after surgery. ?You may ?leave open to air. Please do not remove the steri strips underneath. they will fall off on their own in one week. IT IS NORMAL FOR THE WOUND TO OOZE OR BE BLOODY FOR A FEW DAYS AFTER SURGERY. ?IF THIS HAPPENS JUST PLACE NEW DRESSING OVER IT TO AVOID STAINING CLOTHES. You may shower on post op day # 1 We ask that you do not let the water soak the wound. If it does get wet, just towel dry lightly. Please do not scrub your incision or place any type of chemical/ointment on the wound. No tub baths, pools or jacuzzis for one month. If you have any leaking or redness from your wound, or fevers, please call office <LENNIE Benz - Last Filed: 10/15/24 11:43> Print Language: Congolese <LENNIE Benz - Last Filed: 10/15/24 11:43>
== END 2024-10-15 15:33 | disposition home or self-care (01) ==
PROVIDERS: Nurse Practitioner; Visit Provider Neurological Surgery
PROC: (CPT 63030; principal; 2024-10-15 10:30)
DX: M51.16 Intervertebral disc disorders with radiculopathy, lumbar region (principal)
CPT/HCPCS: 63030; 36415; 80048; J0131; J0690; J1100; J1171; J2405; J3010

== ENCOUNTER → 2024-10-15 07:50 | Outpatient (BNV) | payer OTHER, SELFPAY | PROVIDERS: Visit Provider Neurological Surgery | DX: M51.16 Intervertebral disc disorders with radiculopathy, lumbar region (principal); M51.27 Other intervertebral disc displacement, lumbosacral region | CPT/HCPCS: 63030 ==

== ENCOUNTER 2024-11-09 11:27 | Outpatient (AMB) | payer OTHER, SELFPAY ==
--- NOTE | 2024-11-09 11:41 | A.SPINEOV_ITS ---
Intake Visit Reasons: 1st Post op Intake Note: Mr. Aleman is here today for her 1st post op. Scene Shifter Required: No Allergies No Known Allergies Allergy (Verified 10/15/24 09:27) Assessment & Plan Assessment & Plan (1) Lumbar disc herniation: Code(s): M51.26 - Other intervertebral disc displacement, lumbar region Category: Medical Plan Mr Aleman is here for 3 week postoperative visit for right L4-5 microdiskectomy.. He seems to be doing well. He has improvement in his leg pain although it is not completely gone. He has been cautious with his activities. He has not returned back to the gym yet. On exam, he appears to be walking comfortably, his wound is healed up beautifully. We discussed activity guidelines, restrictions and expectations after lumbar microdiskectomy. I told him just to be cautious for about another 3 weeks or so until he is healed up at the surgery site and then he can start to resume normal activities. I will see him back 1 more time for final postoperative visit in 6 weeks. Lobo Diane MD, PhD [facility] Coding Level of Care Code Global (38918) Diagnoses Lumbar disc herniation M51.26
--- OUTSIDE RECORDS SUMMARY | 2024-11-09 12:44 | XMS_ITS | Encounter Summary ---
Author Organization [facility] Address [address] [facility] [address] [place] [phone] Phone Care Team Providers Care Survey Associate Name Role Phone Le Jimenez Primary Care Provider + Encounter Details Date Type Department Care Team (Late st Contact Info) Description 12/25/2023 Procedure Pass [facility]oscopy Admitting Dept Virtual Department [address] [place] [address] Social History Tobacco Use Types Packs/Day Years Used Date Smoking Tobacco: Never Assessed Education Answer Date Recorded Are you interested in more education? Not on taniya e 10/22/2023 Are you concerned about learning? Not on file 10/22/2023 No 10/22/2023 No 10/22/2023 Digital Access Answer Date Recorded No 10/22/2023 No 10/22/2023 Reliable internet access at home? Not on file 10/22/2023 Device with a working camera? Not on file Sex and Gender Information Value Date Recorded Sex Assigned at Not on file Legal Sex Male 1:44 PM EDT Gender Identity Not on file Sexual Orientation Not on file documented as of this encounter Plan of Treatment Not on file documented as of this encounter Visit Diagnoses Not on filedocumented in this encounter Care Teams Survey Associate Relationship Specialty Start Date End Date Le Jimenez PA [address] [address] PCP - General 12/24/23 documented as of this encounter Additional Source Comments The information contained in this document represents components of the legal health record. It is not the complete legal health record.[facility]
== END 2024-11-09 12:11 | disposition home or self-care (01) ==
LOC: HO.HNS 11:28
PROVIDERS: Visit Provider Physician Assistant
DX: M51.26 Other intervertebral disc displacement, lumbar region (principal)
CPT/HCPCS: 99024

== ENCOUNTER 2024-12-25 11:30 | Outpatient (AMB) | payer OTHER, SELFPAY ==
--- NOTE | 2024-12-25 11:34 | A.SPINEOV_ITS ---
Intake Visit Reasons: 2nd post op Intake Note: Mr. Aleman is here today for his 2nd post op. Sales And Operations Trainee Required: No Allergies No Known Allergies Allergy (Verified 12/25/24 11:34) Assessment & Plan Assessment & Plan (1) Lumbar disc herniation: Code(s): M51.26 - Other intervertebral disc displacement, lumbar region Category: Medical Plan Mr Aleman is 2 months out from his right L4-5 microdiskectomy. Since our last visit about 6 weeks ago he started to notice similar pain going down his left leg now. It bothers him with standing and walking. He is sleeping okay but activity where he has to get up and be up and move around gives him significant left leg pain down into his posterolateral thigh going into his calf. No weakness reported. He takes Tylenol if it gets really bad. He has been doing activity modifications and trying to avoid stressors. His strength in the leg is good. My concern as he may have herniated a disc. I would like him to get a postoperative lumbar MRI with and without eleazar 0 to reassess herniated disc on the left side. Lobo Diane MD, PhD [facility] Orders: Orders MR lumbar spine wo/w con Today M51.26 - Other intervertebral disc displacement, lumbar region Coding Level of Care Code Global (30762) Diagnoses Lumbar disc herniation M51.26
== END 2024-12-25 12:06 | disposition home or self-care (01) ==
LOC: HO.HNS 11:30
PROVIDERS: Visit Provider Physician Assistant
DX: M51.26 Other intervertebral disc displacement, lumbar region (principal)
CPT/HCPCS: 99024

== ENCOUNTER 2025-01-15 11:29 | Outpatient (AMB) | payer OTHER, SELFPAY ==
--- OUTSIDE RECORDS SUMMARY | 2025-01-09 07:51 | XMS_ITS | Encounter Summary ---
[facility] Address [address] [place] [address] Care Team Providers Care Conditioner Tumbler Operator Name Role Phone Devyn Norris MD Primary Care Provider [phone] Reason for Referral * Imaging (Routine) - Pending Review Specialty Diagnoses / Procedures Referred By Contac t Referred To Contact Radiology Diagnoses Other intervertebral disc displacement, lumbar region Procedures MR Lumbar Spine wo and w Contrast Lobo Hastings PA [address] [address] Phone: tel: fax: [facility] Referral ID Status Reason Start Date Expiration Date V isits Requested Visits Authorized [id number] Pending Review 01/07/2025 01/07/2026 1 1 Reason for Visit * Imaging (Routine) - Pending Review Specialty Diagnoses / Procedures Referred By Contac t Referred To Contact Radiology Diagnoses Other intervertebral disc displacement, lumbar region Procedures MR Lumbar Spine wo and w Contrast Lobo Hastings PA [address] [address] Phone: tel: fax: [facility] Referral ID Status Reason Start Date Expiration Date V isits Requested Visits Authorized [id number] Pending Review 01/07/2025 01/07/2026 1 1 Encounter Details Date Type Department Care Team (Latest Contact Info) Description 01/09/2025 7:51 AM EDT - 01/09/2025 11:59 PM EDT Hospital Encounter [facility] MRI [address] [place] [address] Other intervertebral disc displacement, lumbar region Discharge Disposition: Home or Self Care Social History Tobacco Use Types Packs/Day Years Used Date Smoking Tobacco: Never Smokeless Tobacco: Never Alcohol Use Standard Drinks/Week Comments Not Currently [...] for your loved ones. For example, child welfare consultant or elderly care for an older adult? [...] Date Recorded What is your living situation? Unrecognized valu e 05/02/2024 Sex and Gender Information Value Date Recorded Sex Assigned at Not on file Legal Sex Male 8:47 PM EST Gender Identity Not on file Sexual Orientation Not on file Occupation Industry Job Start Date Job End Date wedding [employer] Not on file Not on file Not on file documented as of this encounter Medications at Time of Discharge amitriptyline (ELAVIL) 25 mg tabletIndications :Gastro-esophagea l reflux disease without esophagitis TAKE 1 TABLET BY MOUTH EVERYDAY AT BEDTIME 90 tablet 1 08/06/2024 amLODIPine (NORVASC) 5 mg tablet Take 1 tablet (5 mg total) by mouth 1 (one) time each day. 90 tablet 1 10/07/2024 atorvastatin (LIPITOR) 20 mg tablet TAKE 1 TABLET BY MOUTH EVERY DAY 90 tablet 3 03/28/2024 cholecalciferol (VITAMIN D-3) 50 mcg (2,000 unit) capsule Take 1 capsule (2,000 Units total) by mouth 1 (one) time each day. 11/05/2023 famotidine (PEPCID) 20 mg tabletIndications :Gastro-esophagea l reflux disease without esophagitis TAKE 1 TABLET BY MOUTH TWICE A DAY 180 tablet 1 09/23/2024 losartan (COZAAR) 100 mg tablet TAKE 1 TABLET BY MOUTH EVERY DAY 90 tablet 1 12/21/2024 magnesium 250 mg tablet Take 1 Tablet by mouth at bedtime. 11/05/2023 pantoprazole (PROTONIX) 40 mg EC tabletIndications :Gastroesophageal reflux disease, unspecified whether esophagitis present TAKE 1 TABLET BY MOUTH TWICE A DAY 180 tablet 10/12/2024 documented as of this encounter Discharge Disposition Disposition Code Departure Means Destination Home or Self Care documented in this encounter Plan of Treatment Not on file documented as of this encounter Procedures Procedure Name Priority Date/Time Associated Diagnosis Comments MR LUMBAR SPINE WO AND W CONTRAST Routine 01/09/2025 8:48 AM EDT Other intervertebral disc displacement, lumbar region documented in this encounter Results * MR Lumbar Spine wo and w Contrast (01/09/2025 8:48 AM EDT) Anatomical Region Laterality Modality L-spine, Spine Magnetic Resonan ce 01/11/2025 7:27 PM EDT Impressions 01/11/2025 7:50 PM EDT Residual/recurrent right paracentral protrusion at L4-5 resulting in mild spinal canal stenosis with effacement of the right subarticular zone. Disc contacts the descending right L5 nerve in the subarticular zone. Unchanged right paracentral protrusion at L1-2 resulting in effacement of the right subarticular zone and contacting the descending right L2 nerve. -------- FINAL REPORT -------- Dictated By: PATY SNYDER Dictated Date: 01/11/2025 19:27 ET Assigned Physician: PATY SNYDER Reviewed and Electronically Signed By: PATY SNYDER Signed Date: 01/11/2025 19:50 ET Workstation ID: [id number] Transcribed By: Self Edit Transcribed Date: 01/11/2025 19:27 ET Narrative 01/11/2025 7:50 PM EDT PROCEDURE: Lumbar spine MRI INDICATION: Lumbar disc displacement, pain TECHNIQUE: Multiplanar, multisequence MRI of the Lumbar spine without and with contrast. 20 mL Dotarem injected intravenously without complication. COMPARISON: 07/08/2024 FINDINGS: Alignment is unchanged. No fracture or suspicious marrow replacing lesion. Degenerative loss of normal disc height and signal at L1-2 and L4-5, similar compared to prior. Postsurgical changes at the right L4-5 facet joint. Facet joints are otherwise within normal limits. Conus medullaris terminates at L1. No epidural collection or mass is seen within the spinal canal. No abnormal enhancement within the spinal canal. Postsurgical changes in the paraspinal musculature. Visualized intra-abdominal and pelvic structures are normal. Findings by level: L1-2: Right paracentral annular tear and protrusion, similar compared to prior. Effacement of the right subarticular zone without foraminal or spinal canal stenosis, unchanged. This contacts the descending right L2 nerve, similar compared to prior L2-3: No focal disc protrusion, foraminal stenosis, or spinal canal stenosis. L3-4: No focal disc protrusion, foraminal stenosis, or spinal canal stenosis. L4-5: Right laminotomy Right paracentral annular tear with residual/recurrent protrusion resulting in effacement of the right subarticular zone and mild spinal canal stenosis. Mild right and no left foraminal stenosis, similar compared to prior. L5-S1: No focal disc protrusion, foraminal stenosis, or spinal canal stenosis. Procedure Note Paty Snyder MD - 01/11/2025 PROCEDURE: Lumbar spine MRI INDICATION: Lumbar disc displacement, pain TECHNIQUE: Multiplanar, multisequence MRI of the Lumbar spine without andwith contrast. 20 mL Dotarem injected intravenously withoutcomplication. COMPARISON: 07/08/2024 FINDINGS: Alignment is unchanged. No fracture or suspicious marrow replacing lesion. Degenerative loss of normal disc height and signal at L1-2 and L4-5,similar compared to prior. Postsurgical changes at the right L4-5 facet joint. Facet joints areotherwise within normal limits. Conus medullaris terminates at L1. No epidural collection or mass is seenwithin the spinal canal. No abnormal enhancement within the spinalcanal. Postsurgical changes in the paraspinal musculature. Visualizedintra-abdominal and pelvic structures are normal. Findings by level: L1-2: Right paracentral annular tear and protrusion, similar compared toprior. Effacement of the right subarticular zone without foraminal orspinal canal stenosis, unchanged. This contacts the descending right [id number], similar compared to prior L2-3: No focal disc protrusion, foraminal stenosis, or spinal canalstenosis. L3-4: No focal disc protrusion, foraminal stenosis, or spinal canalstenosis. L4-5: Right laminotomy Right paracentral annular tear withresidual/recurrent protrusion resulting in effacement of the rightsubarticular zone and mild spinal canal stenosis. Mild right and no leftforaminal stenosis, similar compared to prior. L5-S1: No focal disc protrusion, foraminal stenosis, or spinal canalstenosis. IMPRESSION: Residual/recurrent right paracentral protrusion at L4-5 resulting in mildspinal canal stenosis with effacement of the right subarticular zone.Disc contacts the descending right L5 nerve in the subarticular zone. Unchanged right paracentral protrusion at L1-2 resulting in effacement ofthe right subarticular zone and contacting the descending right [id number]. -------- FINAL REPORT -------- Dictated By: PATY SNYDER Dictated Date: 01/11/2025 19:27 ET Assigned Physician: PATY SNYDER Reviewed and Electronically Signed By: PATY SNYDER Signed Date: 01/11/2025 19:50 ET Workstation ID: [id number] Transcribed By: Self Edit Transcribed Date: 01/11/2025 19:27 ET Lobo HOGUE [facility] MRI PROCEDURES Final Re sult documented in this encounter Visit Diagnoses Diagnosis Other intervertebral disc displacement, lumbar region documented in this encounter Administered Medications Inactive Administered Medications - up to 3 most recent administrations Medication Order MAR Action Action Date Dose Rate Site gadoterate meglumine (CLARISCAN, DOTAREM) injection 20 mL 20 mL, intravenous, Once in imaging, Starting on 01/09/25 at 0848, For 1 dose Given 01/09/2025 8:49 AM EDT 20 mL documented in this encounter Orders Medications Ordered That Genaro ht Not Have Been Administered Count Last Ordered Date First Ordered Date gadoterate meglumine (LELAND CAN, DOTAREM) injection 20 mL 1 01/09/2025 documented in this encounter Additional Health Concerns Assessment Noted Time PHQ-9 Depression Total Score: 0 05/02/19 25 4:24 PM EST documented as of this encounter Care Teams Conditioner Tumbler Operator Relationship Specialty Start Date End Date Devyn Norris MD [address] [place] [address] PCP - General Internal Medicine 03/17/18 documented as of this encounter
--- NOTE | 2025-01-15 11:52 | A.SPINEOV_ITS ---
Intake Visit Reasons: MRI f/u Intake Note: Mr. Aleman is here today to F/u on MRI. Patient Care Technician Instructor Required: No Allergies No Known Allergies Allergy (Verified 12/25/24 11:34) Assessment & Plan Assessment & Plan (1) Lumbar disc herniation: Code(s): M51.26 - Other intervertebral disc displacement, lumbar region Category: Medical Plan Mr Aleman came in to follow up on his MRI. Thankfully his left leg pain is somewhat better. His MRI done at [facility] however does show there is a small recurrence of the right-sided disc herniation at L4-5. The T1 weighted contrast images do not show any residual nerve compression. I do not see anything compressed on the left side. He still has the disc herniation up at right L1-2 and that looks unchanged compared to his previous MRIs. We talked about the fact that he is a bit more prone to these kind of problems, so he should avoid strenuous heavy lifting in general, but otherwise he can be activities as tolerated. He is going to try to lose weight and see if that helps as well. He will come back and see us down the road if he develops any recurrent leg pain. Total amount of time spent in this visit was 20 minutes in discussion of symptoms, lumbar imaging results and subsequent plan of care Lobo Diane MD,PhD [facility] Coding Level of Care Code Est Pt Level 3 (18941) Diagnoses Lumbar disc herniation M51.26
--- OUTSIDE RECORDS SUMMARY | 2025-01-15 12:38 | XMS_ITS | Clinical Summary ---
Author Organization [facility] Address [address] [address] Phone Care Team Providers Care Marketing Production Specialist Name Role Phone Le Jimenez Primary Care Provider + Social History Tobacco Use Types Packs/Day Years [...] on file Sexual Orientation Not on file Plan of Treatment Health Maintenance Due Date Last Done Comments LIPID PANEL 1987 DEPRESSION SCREENING 1999 SMOKING Hx and SMOKELESS TOB ACCO SCREENING 12/03/2000 HEPATITIS C SCREENING 12/03/2005 HIV ONE-TIME SCREENING (18-6 5 YEARS) 12/03/2005 Adult Td,Tdap Booster 04/15/2016 04/15/2006 INFLUENZA VACCINE (#1) 2024 COVID-19 VACCINE (2023-2 5 season) 2024 HEPATITIS A VACCINES Aged Out No long er eligible based on patient's age to complete this topic HIB VACCINES Aged Out No longer eligi ble based on patient's age to complete this topic MENINGOCOCCAL VACCINES (ACWY) Aged Out No longer eligible based on patient's age to complete this topic MENINGOCOCCAL VACCINES (B) Aged Out N o longer eligible based on patient's age to complete this topic PNEUMOCOCCAL VACCINES (0-49 years) Aged Out No longer eligible based on patient's age to complete this topic Medical Devices Not on file Insurance O O O HMO Member Subscriber Plan / Payer (Ef fective 2023-Present) Name:Prabhjot Aleman Relation to Subscriber:Self Name:Prabhjot Aleman Payer ID:Not on file Type:HMO Address: [place] [id number] HMO HMO Member Subscriber Plan / Payer (Ef fective 2023-Present) Name:Prabhjot Aleman Relation to Subscriber:Self Name:Prabhjot Aleman Payer ID:Not on file Type:HMO Address: [place] [id number] Care Teams Marketing Production Specialist Relationship Specialty Start Date End Date Le Jimenez PA [address] [address] PCP - General 9/10/24 Additional Source Comments The information contained in this document represents components of the legal health record. It is not the complete legal health record.[facility]
--- OUTSIDE RECORDS SUMMARY | 2025-01-15 12:38 | XMS_ITS | Encounter Summary ---
Author Organization [facility] Address [address] [facility] [address] [place] [phone] Phone Care Team Providers Care Charter And Tour Bus Driver Name Role Phone Le Jimenez Primary Care Provider + Encounter Details Date Type Department Care Team (Late st Contact Info) Description 12/25/2023 Procedure Pass [facility] Admitting Dept Virtual Department [address] [place] [address] Social History Tobacco Use Types Packs/Day Years [...] on filedocumented in this encounter Care Teams Charter And Tour Bus Driver Relationship Specialty Start Date End Date Le Jimenez PA [address] [address] PCP - General 12/24/23 documented as of this encounter Additional Source Comments The information contained in this document represents components of the legal health record. It is not the complete legal health record.[facility]
--- OUTSIDE RECORDS SUMMARY | 2025-01-15 12:38 | XMS_ITS | Clinical Summary ---
Author Organization [address] [facility] Address [address] [place] [address] Phone Care Team Providers Care Mold Carpenter Name Role Phone Devyn Norris MD Primary Care Provider [phone] Allergies No known active allergies Medications cholecalciferol (VITAMIN D-3) 50 mcg (2,000 unit) capsule Take 1 capsule (2,000 Units total) by mouth 1 (one) time each day. 11/05/19 24 Active magnesium 250 mg tablet Take 1 Tablet by mouth at bedtime. 11/05/19 24 Active atorvastatin (LIPITOR) 20 mg tablet TAKE 1 TABLET BY MOUTH EVERY DAY 90 tablet 3 03/28/20 24 Active amitriptyline (ELAVIL) 25 mg tabletIndicatio ns:Gastro-esoph ageal reflux disease without esophagitis TAKE 1 TABLET BY MOUTH EVERYDAY AT BEDTIME 90 tablet 1 08/07/19 25 Active famotidine (PEPCID) 20 mg tabletIndicatio ns:Gastro-esoph ageal reflux disease without esophagitis TAKE 1 TABLET BY MOUTH TWICE A DAY 180 tablet 1 09/24/19 25 Active amLODIPine (NORVASC) 5 mg tablet Take 1 tablet (5 mg total) by mouth 1 (one) time each day. 90 tablet 1 10/08/19 25 Active pantoprazole (PROTONIX) 40 mg EC tabletIndicatio ns:Gastroesopha geal reflux disease, unspecified whether esophagitis present TAKE 1 TABLET BY MOUTH TWICE A DAY 180 tablet 10/13/19 25 Active losartan (COZAAR) 100 mg tablet TAKE 1 TABLET BY MOUTH EVERY DAY 90 tablet 1 12/22/19 25 Active losartan (COZAAR) 100 mg tablet TAKE 1 TABLET BY MOUTH EVERY DAY 90 tablet 1 06/23/19 25 025 Discontinued Active Problems Problem Noted Date Diagnosed Date Fatty liver 03/10/2024 Overview (03/10/2024): [place] 01/16/18 Vitamin D deficiency 05/31/2023 Low back pain 12/12/2022 Obesity (BMI 30-39.9) 09/07/2022 HTN (hypertension) 11/08/2021 Hyperlipidemia 07/29/2017 Elevated liver enzymes 07/26/2017 GERD (gastroesophageal reflux disease) Encounters Date Type Department Care Team Description 01/09/2025 7:51 AM EDT - 01/09/2025 11:59 PM EDT Hospital Encounter [facility] [address] [place] [id number] Other intervertebral disc displacement, lumbar region Discharge Disposition: Home or Self Care 11/05/2024 8:30 AM EDT Office Visit Internal Medicine - [place] [address] [facility] [address] [place] [id number] Devyn Norris MD Primary hypertension (Primary Dx); Elevated liver enzymes; Hypercholesterolemia; Gastroesophageal reflux disease without esophagitis from Last 3 Months Immunizations Immunization Administration Dates Next Due Hepatitis B Pediatric [...] care for your loved ones. For example, childcare worker or elderly care for an older adult? [...] Industry Job Start Date Job End Date [employer] Not on file Not on file Not on file Obstetrics History Last Filed Vital Signs Vital Sign Reading Time Taken Comments Blood Pressure 122/68 11/05/2024 8:27 AM EDT Pulse 90 11/05/2024 8:27 AM EDT Temperature 37 C (98.6 F) 11/05/2024 8:27 AM EDT Respiratory Rate - - Oxygen Saturation 98% 11/05/2024 8:27 AM EDT Inhaled Oxygen Concentration - - Weight 106 kg (233 lb) 11/05/2024 8:27 AM EDT Height 175.3 cm (5' 9 ) 11/05/2024 8:27 AM EDT Body Mass Index 34.41 11/05/2024 8:27 AM EDT Plan of Treatment Health Maintenance Due Date Last Done Comments HPV Vaccines (1 - 3-dose SCDM series) 12/03/2014 DTaP,Tdap,and Td Vaccines (7 - Td or Tdap) 04/15/2016 04/15/2006, 11/16/1992, 07/19/1989, Additional history exists HIV Screening 03/24/2022 Hepatitis C Screening 03/24/2022 COVID-19 Vaccine ( season) 2024 08/25/2020 Influenza Vaccine (#1) 2024 Social Influencers of Health Screening 05/02/2025 05/02/2024 Hypertension/CHF/CAD Annual BMP Blood Test 11/05/2025 11/05/2024, 05/08/2024, 05/30/2023 Cholesterol Screening (Lipid Panel) 11/05/2029 11/05/2024, 05/08/2024, 05/30/2023 RSV Immunization Adult Patients (1 - 1-dose 75+ series) 12/03/2062 HIB Vaccines Completed 07/19/1989 IPV Vaccines Completed 11/16/1992, 09/1989, 08/22/1988, Additional history exists MMR Vaccines Completed 12/06/1997, 04/11/1989 Hepatitis B Vaccines Completed 07/31/2000, 05/10/2000, 04/11/2000 Meningococcal ACWY Vaccine Aged Out 12/11/2006, No longer eligible based on patient's age to complete this topic Depression Screening Completed 05/02/2024, 01/20/20 Hepatitis A Vaccines Aged Out No long er eligible based on patient's age to complete this topic Meningococcal B Vaccine Aged Out No l onger eligible based on patient's age to complete this topic Pneumococcal Vaccine: Pediatrics (0 to 5 Years) and At-Risk Patients (6 to 49 Years) Aged Out No longer eligible based on [...] EDT Other intervertebral disc displacement, lumbar region CBC WITH AUTO DIFFERENTIAL Routine 11/05/2024 9:00 AM EDT Primary hypertension Elevated liver enzymes Hypercholesterolemia Gastroesophageal reflux disease without esophagitis CBC AND DIFFERENTIAL Routine 11/05/2024 9:00 AM EDT Primary hypertension Elevated liver enzymes Hypercholesterolemia Gastroesophageal reflux disease without esophagitis COMPREHENSIVE METABOLIC PANEL Routine 11/05/2024 9:00 AM EDT Primary hypertension Elevated liver enzymes Hypercholesterolemia Gastroesophageal reflux disease without esophagitis LIPID PANEL WITH REFLEX TO DIRECT LDL Routine 11/05/2024 9:00 AM EDT Primary hypertension Elevated liver enzymes Hypercholesterolemia Gastroesophageal reflux disease without esophagitis THYROID STIMULATING HORMONE Routine 11/05/2024 9:00 AM EDT Primary hypertension Elevated liver enzymes Hypercholesterolemia Gastroesophageal reflux disease without esophagitis HM DEPRESSION SCREENING Routine 01/20/2024 from Last 3 Months or Most Recently Relevant to Health Maintenance Results * MR Lumbar Spine wo and [...] Signed Date: 01/11/2025 19:50 ET Workstation ID: [id number] Transcribed By: Self Edit Transcribed Date: 01/11/2025 [...] stenosis, unchanged. This contacts the descending right [id number], similar compared to prior L2-3: No focal [...] subarticular zone and contacting the descending right [id number]. -------- FINAL REPORT -------- Dictated By: PATY SNYDER Dictated Date: 01/11/2025 19:27 ET Assigned Physician: PATY SNYDER Reviewed and Electronically Signed By: PATY SNYDER Signed Date: 01/11/2025 19:50 ET Workstation ID: [id number] Transcribed By: Self Edit Transcribed Date: 01/11/2025 19:27 ET us [facility] MRI PROCEDURES Final Re sult * (ABNORMAL) Lipid panel with reflex to direct LDL (11/05/2024 9:00 AM EDT) Cholesterol 182 0 - 200 mg/dL LAB CHEMISTRY METHOD 11/05/2024 2:36 PM EDT [facility] Triglycerides 117 0 - 150 mg/dL LAB CHEMISTRY METHOD 11/05/2024 2:36 PM EDT [facility] HDL 51 >=40 mg/dL LAB CHEMISTRY METHOD 11/05/2024 2:36 PM EDT [facility] LDL Calculated 108(H) 0 - 100 mg/dL LAB CHEMISTRY METHOD 11/05/2024 2:36 PM EDT [facility] VLDL Cholesterol Gumaro 23.4 mg/dL LAB CHEMISTRY METHOD 11/05/2024 2:36 PM EDT [facility] Non HDL Chol. (LDL+VLDL) 131 <145 mg/dL LAB CHEMISTRY METHOD 11/05/2024 2:36 PM EDT [facility] Chol/HDL Ratio 3.6 0.0 - 4.4 LAB CHEMISTRY METHOD 11/05/2024 2:36 PM EDT [facility] Blood Venous blood specimen / Unknown Venipuncture / Unknown 11/05/2024 9:00 AM EDT 11/05/2024 9:00 AM EDT us Devyn Norris MD LAB BLOOD ORDERABLES Final Resul t [facility] [address] [place] [address], * (ABNORMAL) CBC auto differential (11/05/2024 9:00 AM EDT) [facility] Signature WBC 5.5 4.8 - 10.8 K/mcL LAB HEMETOLOGY METHOD 11/05/2024 10:33 AM EDT [facility] RBC 5.60(H) 4.50 - 5.50 M/mcL LAB HEMETOLOGY METHOD 11/05/2024 10:33 AM EDT [facility] Hemoglobin 14.8 13.5 - 17.5 g/dL LAB HEMETOLOGY METHOD 11/05/2024 10:33 AM [facility] Hematocrit 45.2 42.0 - 54.0 % LAB HEMETOLOGY METHOD 11/05[facility]24 10[facility] MCV 81.4 79.0 - 98.0 FL LAB HEMETOLOGY METHOD 11/05/2024 10:33 AM [facility] MCH 26.7(L) 27.0 - 32.0 pcg LAB HEMETOLOGY METHOD 11/05/2024 10:33 AM [facility] MCHC 32.7 32.0 - 37.0 g/dL LAB HEMETOLOGY METHOD 11/05/2024 10:33 AM EDT [facility] RDW 12.2 11.0 - 15.0 % LAB HEMETOLOGY METHOD 11/05/2024 10:[facility] Platelets 285 130 - 400 K/mcL LAB HEMETOLOGY METHOD 11/05/2024 10:33 AM [facility] MPV 10.7 7.0 - 11.0 FL LAB HEMETOLOGY METHOD 11/05/2024 10:33 AM EDT [facility] NRBC 0.0 <1.0 % LAB HEMETOLOGY METHOD 11/05/2024 10:33 AM [facility] NRBC Absolute 0.00 <0.10 K/mcL LAB HEMETOLOGY METHOD 11/05/2024 10:33 AM [facility] Neutrophils Relative 63.9 % LAB HEMETOLOGY METHOD 11/05/2024 10:33 AM [facility] Lymphocytes Relative 29.0 % LAB HEMETOLOGY METHOD 11/05/2024 10:33 AM [facility] Monocytes Relative 5.3 % LAB HEMETOLOGY METHOD 11/05/2024 10:33 AM [facility] Eosinophils Relative 1.1 % LAB HEMETOLOGY METHOD 11/05/2024 10:33 AM [facility] Basophils Relative 0.5 % LAB HEMETOLOGY METHOD 11/05/2024 10:33 AM [facility] Immature Granulocytes Relative 0.2 % LAB HEMETOLOGY METHOD 11/05/2024 10:33 AM [facility] Neutrophils Absolute 3.51 1.50 - 7.00 K/mcL LAB HEMETOLOGY METHOD 11/05/2024 10:33 AM [facility] Lymphocytes Absolute 1.59 1.00 - 5.00 K/mcL LAB HEMETOLOGY METHOD 11/05/2024 10:33 AM [facility] Monocytes Absolute 0.29 0.20 - 1.00 K/mcL LAB HEMETOLOGY METHOD 11/05/2024 10:33 AM [facility] Eosinophils Absolute 0.06 0.00 - 0.50 K/mcL LAB HEMETOLOGY METHOD 11/05/2024 10:33 AM [facility] Basophils Absolute 0.03 0.00 - 0.20 K/mcL LAB HEMETOLOGY METHOD 11/05/2024 10:33 AM [facility] Immature Granulocytes Absolute 0.01 0.00 - 0.03 K/mcL LAB HEMETOLOGY METHOD 11/05/2024 10:33 AM EDT [facility] Blood Venous blood specimen / Unknown Venipuncture / Unknown 11/05/2024 9:00 AM EDT 11/05/2024 9:00 AM EDT us Devyn Norris MD LAB BLOOD ORDERABLES Final Resul t Performing Organization Address [facility]/ZIP Co de Phone Number [facility] [address] [place] [address], [place] [phone] * Thyroid stimulating hormone (11/05/2024 9:00 AM EDT) TSH 2.10 0.40 - 4.00 mcIU/mL LAB CHEMISTRY METHOD 11/05/2024 4:43 PM EDT [facility] Blood Venous blood specimen / Unknown Venipuncture / Unknown 11/05/2024 9:00 AM EDT 11/05/2024 9:00 AM EDT us Devyn Norris MD LAB BLOOD ORDERABLES Final Resul t Performing Organization Address [facility] de Phone Number [facility] [address] [place] [address], [place] [phone] * (ABNORMAL) Comprehensive metabolic panel (11/05/2024 9:00 AM EDT) Sodium 139 133 - 145 mmol/L LAB CHEMISTRY METHOD 11/05/2024 2:36 PM EDT [facility] Potassium 4.4 3.5 - 5.5 mmol/L LAB CHEMISTRY METHOD 11/05/2024 2:36 PM EDT [facility] Chloride 105 96 - 110 mmol/L LAB CHEMISTRY METHOD 11/05/2024 2:36 PM EDT [facility] CO2 27 21 - 32 mmol/L LAB CHEMISTRY METHOD 11/05/2024 2:36 PM [facility] Anion Gap 7 3 - 11 LAB CHEMISTRY METHOD 11/05/2024 2:36 PM [facility] Glucose 81 70 - 100 mg/dL LAB CHEMISTRY METHOD 11/05/2024 2:36 PM [facility] BUN 14 5 - 25 mg/dL LAB CHEMISTRY METHOD 11/05/2024 2:36 PM [facility] Creatinine 0.88 0.70 - 1.30 mg/dL LAB CHEMISTRY METHOD 11/05/2024 2:36 PM [facility] eGFR 114 >=60 mL/min/1. 73m2 LAB CHEMISTRY METHOD 11/05/2024 2:36 PM [facility] Comment:Calculation based on the Chronic Kidney Disease Epidemiology Collaboration (CKD-EPI) equation refit without adjustment for race. BUN/Creatinine Ratio 15.9 LAB CHEMISTRY METHOD 11/05/2024 2:36 PM [facility] Calcium 9.4 8.5 - 10.5 mg/dL LAB CHEMISTRY METHOD 11/05/2024 2:36 PM [facility] AST (SGOT) 28 10 - 42 unit/L LAB CHEMISTRY METHOD 11/05/2024 2:36 PM [facility] ALT (SGPT) 56 10 - 60 unit/L LAB CHEMISTRY METHOD 11/05/2024 2:36 PM [facility] Alkaline Phosphatase 120 42 - 121 unit/L LAB CHEMISTRY METHOD 11/05/2024 2:36 PM [facility] Total Protein 8.4(H) 6.0 - 8.0 g/dL LAB CHEMISTRY METHOD 11/05/2024 2:36 PM [facility] Albumin 4.1 3.2 - 5.0 g/dL LAB CHEMISTRY METHOD 11/05/2024 2:36 PM [facility] Total Bilirubin 0.5 0.0 - 1.4 mg/dL LAB CHEMISTRY METHOD 11/05/2024 2:36 PM EDT [facility] Blood Venous blood specimen / Unknown Venipuncture / Unknown 11/05/2024 9:00 AM EDT 11/05/2024 9:00 AM EDT Devyn Norris MD LAB BLOOD ORDERABLES Final Resul t [facility] [address] [place] [address], [place] [phone] * Depression Screening (01/20/2024) [facility] Depression Screening abstracted Historical Provider HEALTH MAINTENANCE Final Result from Last 3 Months or Most Recently Relevant to Health Maintenance Insurance [facility] [address] [place] [address] Care Teams Mold Carpenter Relationship Specialty Start Date End Date Devyn Norris MD [address] [facility] [address] [place] [address] PCP - General Internal Medicine 03/17/18
--- OUTSIDE RECORDS SUMMARY | 2025-01-15 12:38 | XMS_ITS | Encounter Summary ---
Author Organization [facility] Address [address] [facility] [address] [place] [phone] Phone Care Team Providers Care Linesperson Name Role Phone Le Jimenez Primary Care Provider + Encounter Details Date Type Department Care Team (Late st Contact Info) Description 12/24/2023 Procedure Pass [facility] Endoscopy Admitting Dept Virtual Department [address] [place] [address] Social History Tobacco Use Types Packs/Day Years [...] on filedocumented in this encounter Care Teams Linesperson Relationship Specialty Start Date End Date Le Jimenez PA [address] [address] PCP - General 12/24/23 documented as of this encounter Additional Source Comments The information contained in this document represents components of the legal health record. It is not the complete legal health record.[facility]
== END 2025-01-15 12:37 | disposition home or self-care (01) ==
LOC: HO.HNS 11:30
PROVIDERS: Visit Provider Physician Assistant
DX: M51.26 Other intervertebral disc displacement, lumbar region (principal)
CPT/HCPCS: 99213